=== PATIENT | male | born 1955 | race Caucasian/White ===

== ENCOUNTER 2016-12-11 11:47 | Day surgery (SDC) | payer OTHER ==
--- NOTE | 2016-12-09 15:02 | HP ---
The patient is a 61-year-old, several years with mid abdominal hernia, increasing in size, moderate enlarging incarcerated hernia at this time. Also has an enlarging left chest wall subcutaneous mass that is causing some tenderness and desires excision as well. PAST MEDICAL HISTORY: COPD, hypertension, and reflux. MEDICATIONS: Lisinopril, cholesterol pill, acid reflux pill, and blood pressure pill, names all of which he did not know. PAST SURGICAL HISTORY: None. FAMILY HISTORY: Cancer, hypertension. ALLERGIES: No known drug allergies. SOCIAL HISTORY: 1 pack per day smoker, denies alcohol abuse. REVIEW OF SYSTEMS: Ten systems reviewed, no chest pains or palpitations. Other systems negative or noncontributory as noted above, per pre-admission questionnaire. PHYSICAL EXAMINATION: GENERAL: No acute distress. HEENT: Sclerae nonicteric. NECK: No JVD. CHEST: Normal excursions, Nonlabored breathing. CARDIOVASCULAR: Regular rate and rhythm. ABDOMEN: Soft. No peritoneal signs, but he does have incarcerated mid abdominal ventral hernia, otherwise moderate in size. EXTREMITIES: No edema, no cyanosis. NEUROLOGICAL: Alert, moving extremities grossly symmetrically, no gross motor deficits noted. IMPRESSION: Symptomatic enlarging mid abdomen large ventral hernia with likely some incarcerated preperitoneal fat or omentum. [place] he would benefit from repair. He was discussed options, open, versus laparoscopic. Given the size of the defect it would be beneficial to attempt it laparoscopically. The risks and benefits explained in detail but not limited to bleeding, infection, risk of trocar injury or hernia, small risk of bowel, bladder or blood vessel injury possibly requiring other procedure, or ongoing morbidity, small risk of hematoma or seromal formation as well as risk of ingrown hair or suture reaction at the incision, risk if the mesh became infected likely would need to be removed. Overall risk of hernia re-occurrence, general risk of anesthesia, DVT, PE, pneumonia, general risk of aches, pains, burning, or numbness, possible alf or chronic in nature. He also understands there is small risk of adhesion or scar formation possibly bowel obstruction as well as general risk of ileus. He also understands there is a remote risk of mesh fracture or failure possibly creating an issue with the viscera or other structures, possibly requiring other procedure, ongoing morbidity. He understands this risk is far less than the benefit of using the mesh, which would reduce the overall risk of hernia re-occurrence. He understands all of the above, not limited to. We will proceed with laparoscopic repair incarcerated ventral hernia with mesh, possible open as an outpatient as well as excisional biopsy and left chest wall enlarging SUBCU mass or lipoma as an outpatient.
[~2016-12-11 11:47] MED LIST: BRIDION 200MG/2ML IV ONE; CEFAZOLIN 2 GM-D5W BAG** 50 ML IV ONE; DILAUDID 2 MG INJECTION IV ONE; DIPRIVAN 200 MG/20 ML IV ONE; Decadron 4 MG INJ IV ONE; Lactated Ringers 1,000 ML IV ONE; Lactated Ringers 1,000 ML IV SCH; Pepcid 20 MG VIAL IV ONE; Quelicin Fliptop 200 MG/10 ML IJ ONE; SUBLIMAZE 100 MCG/2 ML IV ONE; Sensorcaine 0.25% 10 ML ONE; Sodium Chloride 3 ML UD NEBULES IH ONE; TORAdol 30 mg Injection IJ ONE; Xopenex 1.25 MG/0.5 ML UD NEBULE IH ONE; Zemuron 100 MG/10 ML IJ ONE; Zofran 4 MG/2 ML VIAL IV ONE
[2016-12-11 13:03] LABS: ANION GAP 12.3 MEQ/L (5-15); BLOOD UREA NITROGEN 16 mg/dL (9-20); CHLORIDE 105 mEq/L (98-107); Carbon Dioxide 29.2 mEq/L (21-32); Glucose 89 MG/DL (70-110); Potassium 4.3 mEq/L (3.5-5.1); SODIUM 142 mEq/L (136-145)
[2016-12-11] MEDS ORDERED: SUBLIMAZE 100 MCG/2 ML ONE (16:03)
[2016-12-11] MEDS ORDERED: DILAUDID 2 MG INJECTION ONE (16:23)
[2016-12-11] MEDS ORDERED: Lactated Ringers 1,000 ML IV ONE (16:29)
[2016-12-11] MEDS ORDERED: Xopenex 1.25 MG/0.5 ML UD NEBULE IH ONE (17:52)
[2016-12-11] MEDS ORDERED: Lasix 20 MG/2 ML ONE (18:03)
[2016-12-11 19:29] VITALS: BP 142/95; PULSE 92; O2SAT 92
--- NOTE | 2016-12-12 07:56 | OP ---
SURGERY DATE/TIME: 12/11/2016 1405 PREOPERATIVE DIAGNOSES: 1) Enlarging subcutaneous mass left anterior chest. 2) Incarcerated ventral hernia mid abdomen. POSTOPERATIVE DIAGNOSES: 1) Enlarging subcutaneous mass left anterior chest. 2) Incarcerated ventral hernia mid abdomen. PROCEDURES: 1) Laparoscopic assisted repair of incarcerated ventral hernia with mesh. 2) Excisional biopsy of 10 cm left chest lipomatous mass. SURGEON: Dr. Francisco Sanchez. ANESTHESIA: General. ESTIMATED BLOOD LOSS: Minimal. INDICATIONS: As noted above. Risks and benefits explained in detail and not limited to and consent obtained. DESCRIPTION OF PROCEDURE AND FINDINGS: The site was confirmed with the patient in the holding area. Taken to the OP. General anesthesia was induced. Chest and abdomen prepped and draped in usual sterile fashion. After official time out and no disagreement with planned procedure, started first with the chest mass. A transverse incision made overlying the area. Dissection carried down circumferentially around this lobulated large subcutaneous mass what appeared to be a lobulated lipoma. It was carefully freed from the underlying fascia and passed off. It measured about 10 cm in size. It was passed off. Good hemostasis noted. The wound is closed with interrupted 3-0 Vicryl closing the subcu down to the level of the fascia. Skin closed with 4-0 Vicryl. Steri-Strips and sterile dressing applied. Attention was then turned to the hernia. Gloves were changed. A transverse incision made above the umbilical area. Dissection carried down. Fascia grasped and pulled upward. Veress needle inserted and tested with saline. Pneumoperitoneum insufflating opening pressure 0 to 15. A 5 mm bladeless port and camera were placed in the left abdomen without any difficulty. There is no evidence of any intra-abdominal injury secondary to trocar insertion. He had a lot of adipose tissue. In left upper quadrant 5 mm port was replaced as well as right mid abdomen port. Slowly and carefully a large amount of adipose tissue is carefully mobilized up off the umbilical tissue this took some time but slowly and carefully accomplished using LigaSure. Good hemostasis noted. Oozing on edges of incarcerated omentum this took some time but both sides of segment of omentum were carefully mobilized out of the subcutaneous incarcerated space back into the abdomen. At this point I felt he would benefit from mesh repair. The 12 port was placed directly over the top of the defect. Later the puncture closed was used to place three - #1 Vicryl to close the fascial defect. It was felt that he would benefit from mesh repair. It was felt that size 8 Ventralex most appropriate size. It was carefully rolled in place through the 12 port and was able to straighten. Straps pulled up and then flattened. It was then tacked at a couple of points and then using the four suture passer transfascial sutures were placed through four separate stab wounds in the lower quadrant with the ProTacker used to tack the mesh in between these four quadrants and the flattened mesh. Once this was accomplished the mesh is tacked more closer to the true fascial defect with interrupted SorbaFix tack. Mesh is lying nice and flat in tension-free manner. Good hemostasis noted. The pressure had been down to 80 prior to tacking and placing the sutures. Good hemostasis noted. There is no evidence of any obvious visceral issues secondary to placing the ports. It should be noted that all the incarcerated content was all omentum and not bowel. At this point again the true fascial defect had been closed with #1 Vicryl. Good hemostasis is noted. The umbilicus is intact down towards the level of the fascia. It should be noted that he had a lot of redundant tissue. The sponge balls carefully placed with pressure. He was given abdominal binder. Steri-Strips and sterile dressing applied after closing the skin with 4-0 Vicryl. 0.25% Marcaine local injected along the skin incision fascial defect. The patient tolerated the procedure well. There were no immediate complications. Pneumoperitoneum decompressed. The patient tolerated the procedure well. There were no immediate complications. Findings discussed with the family out in the waiting area.
[2016-12-12] MEDS ORDERED: Lasix 20 MG/2 ML IV SCH (10:00)
== END 2016-12-11 19:35 | disposition home or self-care (01) ==
LOC: SDC 11:47 → MED SURG 11:48 → UNDOADMOB 11:48 → UNDODISOB 16:48 → UNDOADMOB 17:07 → MED SURG 17:07 → SDC 19:35 → UNDODISOB 19:35
PROVIDERS: ATTEND Surgery
PROC: 0HB5XZX Excision of Chest Skin, External Approach, Diagnostic (ICD-10-PCS; principal; 2016-12-11)
PROC: 0WUF4JZ Supplement Abdominal Wall with Synthetic Substitute, Percutaneous Endoscopic Approach (ICD-10-PCS; 2016-12-11)
DX: R22.2 Localized swelling, mass and lump, trunk (principal); K43.6 Other and unspecified ventral hernia with obstruction, without gangrene; R20.8 Other disturbances of skin sensation; I10 Essential (primary) hypertension; J44.9 Chronic obstructive pulmonary disease, unspecified; K21.9 Gastro-esophageal reflux disease without esophagitis; Z79.899 Other long term (current) drug therapy; Z72.0 Tobacco use
CPT/HCPCS: 00400; 00752; 36415; 80048; 94640; C1781; G0378; J0330; J0690; J1100; J1170; J1885; J1940; J2405; J2704; J3010; L0625